=== PATIENT | female | born 1935 | race Caucasian/White ===

== ENCOUNTER → 2016-05-26 | Outpatient (CLI) | payer MEDICARE, OTHER ==
[~2016-05-26] MED LIST: FERROUS SULFAT; IRON PO; METOPROLOL TAR25 MG PO; OS-CAL 500500 MG; OS-CAL 500500 MG PO; OXYCODON HCL-AP1 TA2 PO; OXYCODONE HCL20 M1 PO; PHENERGAN25 MG PO; PRILOSEC; PRILOSEC20 MG PO; SERTRALINE HCL50 MG PO; SINGULAIR; SINGULAIR PO; ZITHROMAX1 G/PKT PO; ZOLOFT
--- NOTE | ~2016-05-26 | MY10 ---
[facility] A Service of [facility] RADIOLOGY TEXT RESULTS PATIENT: KARON SMALLS LOCATION: [facility] : 37 UNIT #: [id number] AGE: [address]: Chasity Awda MD SEX: F ORDER DR: [id number] [facility] [address] [place], [place] [address] [id number] O MR#: [id number] Acc #: [id number] NAME: KARON SMALLS : 1935 SEX: F STUDY DATE/TIME: 05/26/2016 9:58 UNIT: [facility] ROOM: STUDY DESCRIPTION: MY Mammogram Screen Uni Dig Rt Attending Physician: Chasity Awad M.D. Referring Physician: Chasity Awad M.D. Ordering Physician: Chasity Awad M.D. Primary Care Physician: Chasity Awad M.D. MEDICAL IMAGING REPORT This report is preliminary unless electronic signature is present EXAM Unilateral right digital screening mammogram, 05/26/2016, [facility]. HISTORY 81-year-old woman previous left mastectomy. Annual screen. COMPARISON Mammograms date to 02/11/2008 with most recent 05/11/2015. TECHNIQUE Digital imaging of the right breast was completed utilizing screening protocol. Review includes FDA-approved CAD device. FINDINGS Breast parenchyma is only partially fatty replaced. Subareolar duct prominence is stable. Small circumscribed nodule inferior posterior third is circumscribed and stable. There is no suspicious mass. Occasional benign calcification with no suspicious microcalcifications and I see no architectural disturbance. IMPRESSION Stable benign unilateral right mammogram. Status post left mastectomy. Annual screening recommended. Patients over the age of 40 are entered into a reminder system with target due date for the next mammogram. A result letter will also be sent to the patient. BIRADS: 2 Benign finding. [facility] A Service of [facility] & [facility] RADIOLOGY TEXT RESULTS PATIENT: KARON SMALLS LOCATION: [facility] : 37 UNIT #: [id number] AGE: [address]: Chasity Awad MD SEX: F ORDER DR: Dictated by... Trever Medel M.D. THIS IS AN ELECTRONICALLY VERIFIED REPORT Trever Medel M.D. at 05/26/2016 12:38 PM LYDIA/claudette TD: 05/26/2016 10:42 JOB #: [id number] MEDICAL IMAGING REPORT Page 1 of 1 COPY
== END | disposition home or self-care (01) ==
LOC: CWCC 09:31
DX: Z12.31 Encounter for screening mammogram for malignant neoplasm of breast (principal); Z90.12 Acquired absence of left breast and nipple; Z85.3 Personal history of malignant neoplasm of breast
CPT/HCPCS: G0202